=== PATIENT | female | born 1985 | race Caucasian/White ===

== ENCOUNTER 2017-01-28 04:13 | Inpatient (IN) | payer OTHER ==
[2017-01-28] VITALS (8 sets, daily range): BP systolic 109–128; BP diastolic 64–73
[~2017-01-28] VITALS: Ht 162.6 cm; Wt 63.5 kg
[2017-01-28 05:50] LABS: EOSINOPHIL (%) 0.1 % (0-5); HEMATOCRIT 39.4 % (36.0-46.0); IMMATURE GRANULOCYTE (%) 0.7 % (0.0-0.7); IMMATURE GRANULOCYTE COUNT 0.1 K/uL; INSTRUMENT ABS NEUTROPHIL CT 14.3 K/uL; LYMPHOCYTE COUNT 1.1 K/uL (1.0-2.8); MCHC 33.8 G/DL (30.0-36.0); MCV 88.9 FL (83-99); MEAN PLAT.VOLUME 11.7 uM^3 (9.5-12.4); MONOCYTE (%) 3.5 % (3-12); MONOCYTE COUNT 0.6 K/uL (0-0.8); NEUTROPHIL (%) 88.6 % (45-76); NEUTROPHIL COUNT 14.3 K/uL (1.8-6.4); PLATELET COUNT 158 K/uL (156-360); RBC DIS.WIDTH-CV 12.5 % (11.8-14.6); RBC DIS.WIDTH-SD 40.8 % (39-53); RED BLOOD COUNT 4.43 M/uL (3.80-5.20); WHITE BLOOD COUNT 16.2 K/uL (4.1-10.2)
[2017-01-28] MEDS ORDERED: PRENATAL TABLE1 EAC3 PO (07:44)
[2017-01-29 07:55] VITALS: BP 127/73
== END 2017-01-29 15:32 | disposition home or self-care (01) | DRG 775 ==
LOC: LDRP-OP 04:13 → 2WEST 04:14 → LDRP-OP 03-03 14:15
PROVIDERS: Advanced Practice Midwife
DX: O76 Abnormality in fetal heart rate and rhythm complicating labor and delivery (principal); O70.0 First degree perineal laceration during delivery; Z3A.39 39 weeks gestation of pregnancy; Z37.0 Single live birth; Z68.1 Body mass index [BMI] 19.9 or less, adult
CPT/HCPCS: 85025; J2590

== ENCOUNTER → 2017-03-04 | Outpatient (CLI) | payer OTHER ==
[~2017-03-04] MED LIST: PRENATAL TABLE1 EAC3 PO
== END | disposition home or self-care (01) ==
LOC: LAC 10:11
DX: O92.29 Other disorders of breast associated with pregnancy and the puerperium (principal); O92.79 Other disorders of lactation
CPT/HCPCS: G0463

== ENCOUNTER → 2017-03-14 | Outpatient (CLI) | payer OTHER | END | disposition home or self-care (01) | LOC: LAC 10:44 | DX: O92.03 Retracted nipple associated with lactation (principal); O92.79 Other disorders of lactation | CPT/HCPCS: G0463 ==